=== PATIENT | male | born 1950 | race Caucasian/White ===

== ENCOUNTER → 2016-12-08 | Outpatient (CLI) | payer MEDICARE | LOC: RAD 12:18 | PROVIDERS: ATTEND Otolaryngology | DX: Z01.812 Encounter for preprocedural laboratory examination (principal); J38.7 Other diseases of larynx | CPT/HCPCS: 70491; 71020; 82565 ==

== ENCOUNTER 2017-04-26 12:28 | Emergency (ER) | payer MEDICARE ==
--- NOTE | 2017-04-26 13:40 | ER Document Report ---
ED Medical Screen (RME) - General Chief Complaint: Shortness Of Breath Stated Complaint: DIFFICULITY BREATHING Time Seen by Provider: 04/26/17 13:32 Notes: Patient is a 66-year-old male, past medical history throat cancer, AAA ( scheduled for repair in 4 days), presents with sudden onset of shortness of breath yesterday. He says his shortness of breath is worse when he lays down and improves when he sits up. He saw his primary care physician and was sent to the emergency room due to concern for COPD versus PE. Patient denies chest pain, leg swelling, cough, fevers, hemoptysis, nausea, vomiting or abdominal pain. PE: NAD. Lungs CTAB. RRR. I have greeted and performed a rapid initial assessment of this patient. A comprehensive ED assessment and evaluation of the patient, analysis of test results and completion of the medical decision making process will be conducted by additional ED providers. TRAVEL OUTSIDE OF THE [place] IN LAST 30 DAYS: No - Related Data Allergies/Adverse Reactions: SHRIMP Allergy (Uncoded 04/26/17 12:32) Past Medical History Renal/ Medical History: Denies: Hx Peritoneal Dialysis Physical Exam - Vital signs Vitals: Temp Pulse Resp BP Pulse Ox 98.2 F 87 20 142/98 H 94 04/26/17 12:32 04/26/17 12:32 04/26/17 12:32 04/26/17 12:32 04/26/17 12:32 Course - Vital Signs Vital signs: Temp Pulse Resp BP Pulse Ox 98.2 F 87 20 142/98 H 94 04/26/17 12:32 04/26/17 12:32 04/26/17 12:32 04/26/17 12:32 04/26/17 12:32
--- NOTE | 2017-04-26 14:10 | RADIOLOGY REPORT (SQ) ---
EXAM DESCRIPTION: CHEST PA/LAT COMPLETED DATE/TIME: 04/26/2017 1:54 pm REASON FOR STUDY: SOB COMPARISON: 12/08/2016 EXAM PARAMETERS: NUMBER OF VIEWS: two views TECHNIQUE: Digital Frontal and Lateral radiographic views of the chest acquired. RADIATION DOSE: NA LIMITATIONS: none FINDINGS: LUNGS AND PLEURA: No opacities, masses or pneumothorax. No pleural effusion. MEDIASTINUM AND HILAR STRUCTURES: No masses or contour abnormalities. HEART AND VASCULAR STRUCTURES: Heart normal size. No evidence for failure. BONES: No acute findings. HARDWARE: None in the chest. OTHER: No other significant finding. IMPRESSION: NO SIGNIFICANT RADIOGRAPHIC FINDING IN THE CHEST. TECHNICAL DOCUMENTATION: JOB ID: [id number] [employer]- All Rights Reserved
[2017-04-26 14:30] LABS: ABSOLUTE EOSINOPHILS # (AUTO) 0.2 10^3/uL (0.0-0.6); ABSOLUTE LYMPHOCYTES (AUTO) 1.3 10^3/uL (0.5-4.7); ABSOLUTE MONOCYTES (AUTO) 0.8 10^3/uL (0.1-1.4); ABSOLUTE NEUT (AUTO) 4.9 10^3/uL (1.7-8.2); BASOPHILS % (AUTO) 0.5 % (0-2); EOSINOPHILS % (AUTO) 2.2 % (0-6); HEMATOCRIT 50.3 % (37.9-51.0); HEMOGLOBIN 16.5 g/dL (13.5-17.0); HGB HCT DIFFERENCE -0.8; LYMPHOCYTES % (AUTO) 18.3 % (13-45); MEAN CORPUSCULAR HEMOGLOBIN 31.4 pg (27.0-33.4); MEAN CORPUSCULAR HGB CONC 32.8 g/dL (32.0-36.0); MEAN CORPUSCULAR VOLUME 96 fl (80-97); MONOCYTES % (AUTO) 11.4 % (3-13); RED BLOOD COUNT 5.26 10^6/uL (4.35-5.55); RED CELL DISTRIBUTION WIDTH 13.9 % (11.5-14.0); SEGMENTED NEUTROPHILS % (AUTO) 67.6 % (42-78); WHITE BLOOD COUNT 7.3 10^3/uL (4.0-10.5)
[2017-04-26] MEDS ORDERED: ALBUTEROL SULFATE 0.083% NEB 2.5 MG/3 ML AMPUL NEB ONE (14:40)
--- NOTE | 2017-04-26 14:40 | ER Document Report ---
ED Respiratory Problem - General Mode of Arrival: Ambulatory Information source: Patient TRAVEL OUTSIDE OF THE [place] IN LAST 30 DAYS: No - HPI Patient complains to provider of: Cough, Short of breath Onset: Other - 5-6 days ago Duration: Continuous Context: Smoker - former Cough: Productive Associated symptoms: Other - see notes above <BUSTER OSPINA - Last Filed: 04/26/17 23:50> <JAVID SMITH - Last Filed: 04/27/17 00:06> - General Chief Complaint: Shortness Of Breath Stated Complaint: DIFFICULITY BREATHING Time Seen by Provider: 04/26/17 13:32 Notes: 66 year old male with history of throat cancer and abdominal aortic aneurysm presents to the ED complaining of difficulty breathing which is worsened when laying flat that started 5-6 days ago and describes it as 'COPD breathing'. Patient is additionally complaining of wheezing and bilateral parietal and occiput headache, but denies chest pain, fever, nausea, vomiting, diarrhea, numbness, tingling, or vision changes. Patient has an abdominal aortic aneurysm and has surgery scheduled in 4 days for repair. Patient is concerned that he has developed respiratory problems a few days prior to his scheduled surgery. Patient reports chronic hoarseness and a productive cough, which is not new, and explains that he was seen in May 2016 for persistent sore throat and hoarseness, which led to the discovery of his throat cancer. Vascular Surgeon: Jass Mitchell (last saw 2 weeks ago) PCP: None (BUSTER OSPINA) - Related Data Allergies/Adverse Reactions: SHRIMP Allergy (Uncoded 04/26/17 12:32) Past Medical History - General Information source: Patient - Social History Smoking Status: Former Smoker Chew tobacco use (# tins/day): No Frequency of alcohol use: None Drug Abuse: None Family History: Reviewed & Not Pertinent Patient has suicidal ideation: No Patient has homicidal ideation: No - Past Medical History Cardiac Medical History: Reports: Other - Abdominal Aortic Aneurysm Denies: Hx Heart Attack, Hx Hypercholesterolemia, Hx Hypertension Neurological Medical History: Denies: Hx Cerebrovascular Accident Endocrine Medical History: Denies: Hx Diabetes Mellitus Type 2 Renal/ Medical History: Denies: Hx Peritoneal Dialysis Malignancy Medical History: Reports Other - throat cancer <BUSTER OSPINA - Last Filed: 04/26/17 23:50> Review of Systems - Review of Systems Constitutional: No symptoms reported. denies: Fever EENT: See HPI, Other - voice hoarseness. denies: Blurred vision Cardiovascular: No symptoms reported. denies: Chest pain Respiratory: See HPI, Cough, Short of breath, Sputum, Wheezing Gastrointestinal: No symptoms reported. denies: Diarrhea, Nausea, Vomiting Genitourinary: No symptoms reported Male Genitourinary: No symptoms reported Musculoskeletal: No symptoms reported Skin: No symptoms reported Hematologic/Lymphatic: No symptoms reported Neurological/Psychological: See HPI, Headaches - bilateral parietal and occiput. denies: Numbness, Tingling -: Yes All other systems reviewed and negative <BUSTER OSPINA - Last Filed: 04/26/17 23:50> Physical Exam <BUSTER OSPINA - Last Filed: 04/26/17 23:50> <JAVID SMITH - Last Filed: 04/27/17 00:06> - Vital signs Vitals: Temp Pulse Resp BP Pulse Ox 98.2 F 87 20 142/98 H 94 04/26/17 12:32 04/26/17 12:32 04/26/17 12:32 04/26/17 12:32 04/26/17 12:32 - Notes Notes: GENERAL: Alert, interacts well. No acute distress. Voice hoarseness, but no stridor. HEAD: Normocephalic, atraumatic. EYES: Pupils equal, round, and reactive to light. Extraocular movements intact. ENT: Oral mucosa moist, tongue midline. NECK: Full range of motion. Supple. Trachea midline. LUNGS: Trace expiratory wheezing. No rales or rhonchi. No respiratory distress. HEART: Regular rate and rhythm. No murmurs, gallops, or rubs. ABDOMEN: Soft, non-tender. Non-distended. Bowel sounds present in all 4 quadrants. Abdominal muscles being used to help speak. EXTREMITIES: Moves all 4 extremities spontaneously. No edema, radial and dorsalis pedis pulses 2/4 bilaterally. No cyanosis. NEUROLOGICAL: Alert and oriented x3. Normal speech. Biceps and patellar DTRs 2+ bilaterally. PSYCH: Normal affect, normal mood. SKIN: Warm, dry, normal turgor. Skin thickening and hyper-pigmentation just above the right nipple that is 4 cm x 13 cm. (BUSTER OSPINA) Course - Laboratory Result Diagrams: 04/26/17 14:06 04/26/17 14:06 - Consults Dr. Umaña Time consulted: 15:56 <BUSTER OSPINA - Last Filed: 04/26/17 23:50> - Laboratory Result Diagrams: 04/26/17 14:06 04/26/17 14:06 <JAVID SMITH - Last Filed: 04/27/17 00:06> - Re-evaluation Re-evalutation: 04/26/17 16:08 CBC unremarkable, CMP has minimally elevated glucose at 152, otherwise negative , cardiac enzymes negative, BNP normal, CT angiogram of the chest is negative, soft tissue CAT scan of the neck to look for increasing size of the throat mass shows thickening of the true vocal cord but no signs of airway obstruction. After single breathing treatment of albuterol here the patient is feeling much better, states that he is now able to lie flat without difficulty. Patient will be treated with prednisone and albuterol for presumed exacerbation of COPD. This is a new diagnosis for this patient, but he is a prior smoker. I did discuss this plan of treatment with his surgeon or Dr. Umaña to ensure that a short course of prednisone would not cause any problems with his aortic stenting on Wednesday. He agrees with the course of treatment. (JAVID SMITH) - Vital Signs Vital signs: Temp Pulse Resp BP Pulse Ox 98.2 F 87 19 125/77 94 04/26/17 12:32 04/26/17 12:32 04/26/17 16:20 04/26/17 16:20 04/26/17 16:20 - Laboratory Laboratory results interpreted by me: 04/26/17 14:06 Glucose 152 H - EKG Interpretation by Me Additional EKG results interpreted by me: 04/26/17 16:09 EKG shows sinus rhythm at a rate of 71, left axis deviation, right bundle branch block, no ST segment elevations or depressions, there are T-wave inversions noted in the V2, V1 and aVR per my interpretation. (JAVID SMITH) - Consults Dr. Umaña Reason for consultation: 04/26/17 15:56 Patient was discussed with Dr. Umaña, the patient's vascular surgeon, who agrees with plan to start the patient on steroids as it will not interfere with the aortic stent placement in 4 days. (BUSTER OSPINA) Discharge <BUSTER OSPINA - Last Filed: 04/26/17 23:50> <JAVID SMITH - Last Filed: 04/27/17 00:06> - Discharge Clinical Impression: Essential hypertension, Throat cancer, Acute exacerbation of chronic obstructive pulmonary disease Condition: Stable Disposition: HOME, SELF-CARE Additional Instructions: Use your inhaler 2 puffs every 4 hours as needed for cough or shortness of breath. Please take the prednisone 3 pills daily for the next 4 days, we give you your first dose here today. I did speak with Dr. Umaña who agrees with this treatment course, he does not feel prednisone will interfere with your surgery on Wednesday. Prescriptions: Prednisone [Deltasone 20 mg Tablet] 3 tab PO DAILY 4 Days Scribe Attestation: 04/27/17 00:06 I personally performed the services described in the documentation, reviewed and edited the documentation which was dictated to the scribe in my presence, and it accurately records my words and actions. (JAVID SMITH) Scribe Documentation - Scribe Written by Liz:: Liz Prado, 04/26/2017 1534 acting as scribe for :: Leoncio <BUSTER OSPINA - Last Filed: 04/26/17 23:50>
[2017-04-26 14:50] LABS: ALANINE AMINOTRANSFERASE 27 U/L (21-72); ALBUMIN 4.5 g/dL (3.5-5.0); ALKALINE PHOSPHATASE 99 U/L (38-126); ANION GAP 13 (5-19); ASPARTATE AMINO TRANSFERASE 20 U/L (17-59); BILIRUBIN,DIRECT 0.4 mg/dL (0.0-0.4); BILIRUBIN,TOTAL 0.8 mg/dL (0.2-1.3); BLOOD UREA NITROGEN 20 mg/dL (7-20); CALCIUM 9.5 mg/dL (8.4-10.2); CARBON DIOXIDE 27 mmol/L (22-30); CHLORIDE 100 mmol/L (98-107); CREATINE KINASE 75 U/L (55-170); CREATININE RESULT 0.85 mg/dL (0.52-1.25); GLUCOSE 152 mg/dL (75-110); POTASSIUM 4.8 mmol/L (3.6-5.0); SODIUM 139.5 mmol/L (137-145); TOTAL PROTEIN 7.7 g/dL (6.3-8.2)
[2017-04-26 15:06] LABS: TROPONIN I < 0.012 ng/mL
--- NOTE | 2017-04-26 15:21 | RADIOLOGY REPORT (SQ) ---
EXAM DESCRIPTION: CTA CHEST COMPLETED DATE/TIME: 04/26/2017 3:11 pm REASON FOR STUDY: sob, cancer, r/o PE COMPARISON: None. TECHNIQUE: CT scan of the chest performed using helical scanning technique with dynamic intravenous contrast injection. Images reviewed with lung, soft tissue and bone windows. Reconstructed coronal and sagittal MPR images reviewed. Additional 3 dimensional post-processing performed to develop Maximal Intensity Projection images (FL P). All images stored on PACS. All CT scanners at this facility use dose modulation, iterative reconstruction, and/or weight based d osing when appropriate to reduce radiation dose to as low as reasonably achievable (ALARA). [facility]: Dose Right [facility]: CareDose [facility]: Dose Right [facility]: Teradose 4D [facility]: [employer] CONTRAST TYPE AND DOSE: Not recorded by the technologist. RENAL FUNCTION: BUN 20 creatinine 0.9 RADIATION DOSE: . LIMITATIONS: None. FINDINGS: LUNGS AND PLEURA: Centrilobular emphysema. No masses, infiltrates, pneumothorax. No pleu ral effusions, calcifications. AORTA AND GREAT VESSELS: No aneurysm or dissection. HEART: No pericardial effusion. PULMONARY ARTERIES: No emboli visualized in the main pulmonary arteries or the segmental branches. HILAR AND MEDIASTINAL STRUCTURES: No identified masses or abnormal nodes. HARDWARE: None in the chest. UPPER ABDOMEN: No significant findings. Limited exam. THYROID AND OTHER SOFT TISSUES: See separate neck CT report of the same date. BONES: No acute or significant finding. 3D MIPS: Confirm above findings. OTHER: No other significant finding. IMPRESSION: No evidence of pulmonary embolus. TECHNICAL DOCUMENTATION: JOB ID: [id number] Quality ID # [id number]: Final reports with documentation of one or more dose reduction techniques (e.g., Au tomated exposure control, adjustment of the mA and/or kV according to patient size, use of iterative reconstruction technique) 2010 [employer]- All Rights Reserved
--- NOTE | 2017-04-26 15:36 | RADIOLOGY REPORT (SQ) ---
EXAM DESCRIPTION: CT SOFT TISSUE NECK WITH COMPLETED DATE/TIME: 04/26/2017 3:11 pm REASON FOR STUDY: known throat cancer, increasing difficulty breathi COMPARISON: 12/08/2016 TECHNIQUE: Post IV contrasted scanning from skull base through lung apices with review of bone, soft tissue and lung windows. Reconstructed coronal and sagittal MPR images reviewed. All images stored on PACS. All CT scanners at this facility use dose modulation, iterative reconstruction, and/or weight based d osing when appropriate to reduce radiation dose to as low as reasonably achievable (ALARA). [facility]: Dose Right [facility]: CareDose [facility]: Dose Right [facility]: Teradose 4D [facility]: [employer] CONTRAST TYPE AND DOSE: contrast/concentration: Isovue 370.00 mg/ml; Total Contrast Delivered: 75.0 ml; Total Saline Delivered: 86.0 ml RENAL FUNCTION: BUN 20 creatinine 0.9 RADIATION DOSE: Up-to-date CT equipment and radiation dose reduction techniques were employed. CTDIv ol: 3.3 - 29.8 mGy. DLP: 1784 mGy-cm. . LIMITATIONS: None. FINDINGS: SKULL BASE: Intact. MAJOR SALIVARY GLANDS: No solid or cystic masses. No inflammatory changes. LYMPHADENOPATHY: No adenopathy. MUCOSAL MASSES OR ASYMMETRY: Asymmetry in the left true vocal cord with associated sclerosis in the a rytenoid cartilage. LARYNX/CORDS: No abnormal findings. VASCULAR STRUCTURES: The major vessels are patent. LUNG APICES: See separate report of the same date. BONES: Intact. THYROID: Normal size. No masses. PARANASAL SINUSES: Clear. OTHER: Unchanged polyp anterior left nasal cavity. IMPRESSION: Asymmetry in the left focal cord with associated sclerosis in the adjacent arytenoid car tilage. No significant change. TECHNICAL DOCUMENTATION: JOB ID: [id number] Quality ID # [id number]: Final reports with documentation of one or more dose reduction techniques (e.g., Au tomated exposure control, adjustment of the mA and/or kV according to patient size, use of iterative reconstruction technique) 2010 [employer]- All Rights Reserved
[2017-04-26] MEDS ORDERED: ALBUTEROL SULFATE HFA (90 MCG/PUFF) 8 GM MDI (1 MDI/ER DISP) IH PRN (16:10)
[2017-04-26] MEDS ORDERED: PREDNISONE 20 MG TABLET PO ONE (16:10)
[2017-04-26 16:26] VITALS: BP 125/77
--- NOTE | 2017-04-26 18:13 | EKG REPORT ---
SEVERITY:- ABNORMAL ECG - SINUS RHYTHM RBBB AND LAFB : Confirmed by: Elia Rizo MD 26-Apr-2017 18:13:28
== END 2017-04-26 16:26 | disposition home or self-care (01) ==
LOC: ER 12:28
DX: C14.0 Malignant neoplasm of pharynx, unspecified (principal); J44.1 Chronic obstructive pulmonary disease with (acute) exacerbation; I10 Essential (primary) hypertension; R51 Headache; I45.10 Unspecified right bundle-branch block; I71.4 Abdominal aortic aneurysm, without rupture; Z87.891 Personal history of nicotine dependence; Z91.013 Allergy to seafood
CPT/HCPCS: 93005; 94640; 99284; 36415; 82550; 85025; 80053; 84484; 83880; 71020; 70491; 71275; 93010; A9270 ×2; J3490; J7512

== ENCOUNTER 2017-06-16 10:02 | Day surgery (SDC) | payer MEDICARE ==
[~2017-06-16 10:02] MED LIST: CEFAZOLIN 1 GM/D5W RTU 1 GM/50 ML RTUPB IV PRN; LACTATED RINGERS 1000 ML IV PRN; LIDOCAINE 0.5% INJ-PF (5 MG/ML) 50 ML SDV SUBCUT PRN; LIDOCAINE 2%/EPINEPHRINE INJ 20 ML VIAL ONE
[2017-06-16] MEDS ORDERED: ALBUTEROL SULFATE 0.083% NEB 2.5 MG/3 ML AMPUL NEB ONE (10:21)
[2017-06-16] MEDS ORDERED: FENTANYL CITRATE INJ/PF 100 MCG/2 ML AMPUL ONE ×2 (10:51→13:17)
[2017-06-16] MEDS ORDERED: LIDOCAINE 2% INJ-PF (20 MG/ML) 10 ML AMPUL ONE (10:51)
[2017-06-16] MEDS ORDERED: MIDAZOLAM 2 MG/2 ML INJ ONE (10:51)
[2017-06-16] MEDS ORDERED: PROPOFOL INJ 200 MG/20 ML VIAL IV ONE (10:51)
[2017-06-16] MEDS ORDERED: FENTANYL CITRATE INJ/PF 100 MCG/2 ML AMPUL IV PRN ×3 (12:16)
[2017-06-16] MEDS ORDERED: ONDANSETRON HCL INJ/PF 4 MG/2 ML SDV IV PRN ×2 (12:16→13:06)
[2017-06-16] MEDS ORDERED: DIPHENHYDRAMINE HCL 50 MG/ML VIAL IV PRN (12:16)
--- NOTE | 2017-06-16 13:04 | Operative Report ---
Operative Report DATE OF SURGERY: 06/16/17 PREOPERATIVE DIAGNOSIS: Laryngeal carcinoma POSTOPERATIVE DIAGNOSIS: same OPERATION: 1. Focused ultrasound of right neck, and ultrasound directed insertion of single-lumen Vxznge-c-Bvlg catheter placement of the right subclavian position. 2. Use of intraoperative fluoroscopy. 3. Esophagogastroduodenoscopy with percutaneous endoscopic gastrostomy tube placement SURGEON: TONI NAVARRO 1ST REHABILITATION ENGINEER: GREG GLOVER ANESTHESIA: LMAC TISSUE REMOVED OR ALTERED: None COMPLICATIONS: None ESTIMATED BLOOD LOSS: Scant INTRAOPERATIVE FINDINGS: See below PROCEDURE: Patient was taken to the preop holding area where the right neck was previously marked. He underwent LMAC anesthesia with his arms tucked, right neck and right chest wall exposed, prepped draped sterile fashion in the main operating room all prepared with Betadine. Surgical plan and surgical timeout conducted The first portion of the operation was the planned right sided Clbvfd-o-[id number] catheter. Right neck was scanned with a variable frequency linear transducer, right internal jugular vein felt to be suitable for cannulation. Suitable site for catheter insertion was chosen at the base of the right neck area skin was any stopped 1% lidocaine plain. Using Seldinger technique a micro needle and wire was threaded into the right internal jugular vein. Suitable site which is in the right subclavian position for port placement. Skin was any size 1% lidocaine plain. A 3 cm incision was made in the subcutaneous tissues parallel to the clavicle pocket was developed large enough to accommodate a single-chamber port. Catheter is turned to the appropriate length tunneled between the 2 wounds and attached the port with the plastic ring and the port tucked into the right subclavian pocket Under fluoroscopic guidance the micro wire was switched over to a conventional 0.030 inch wire under fluoroscopy. We then threaded the dilator and introducer sheath over the wire, wire and dilator removed, and the single-lumen catheter threaded into the right internal jugular vein all under fluoroscopic guidance. The tip of the catheter was left in the SVC right atrial junction. There is no kinking of the catheter. There was excellent aspiration and flush through the chamber. Wounds were closed with 3-0 Vicryl benzoin and Steri-Strips. This completed the first portion of the operation Patient was now placed in a steep reverse Trendelenburg position oral mouthpiece inserted and team arrived from [facility] for EGD, PEG tube placement. Flexible adult upper endoscope was advanced to the oropharynx down the esophagus to the stomach into the duodenum. There is no evidence of gross pathology on the hypopharynx. Scope was brought back into the stomach, and insufflation performed. Counter palpation was provided and a suitable site for placement of the PEG tube was chosen in the left of midline sub-xiphoid region. Skin was any size 1 % plain lidocaine, incision made with 11 blade, and Jelco needle and wire threaded into the lumen of the stomach. The wire was retrieved using the snare with the adult endoscope and the endoscope wire all brought out through the patient's mouth. We disengaged the snare and active a 20 Jamaican feeding tube which is threaded over the wire. The feeding tube wire were brought back through in a antegrade fashion bringing the bolster up against the anterior stomach wall. I repeated the endoscopy without difficulty and is confirmed the bolster and secured position, not too tight, with no evidence of bleeding or hematoma. Appropriate fixation devices were applied to the feeding tube. Patient tolerated the procedure well taken recovery in stable condition. Portable upright chest x-ray pending time dictation. The physician medical office receptionist assistant, Ms. Nieves, provided assistance during this case by: Assisting and port insertion, retracting tissue, instillation of local anesthesia and closure of skin incisions.
[2017-06-16] MEDS ORDERED: OXYCODONE-ACETAMINOPHEN 5-325 MG TABLET PO PRN (13:05)
--- NOTE | 2017-06-16 13:05 | PDOC DISCHARGE SUMMARY ---
Discharge Summary (SDC) - Discharge Final Diagnosis: laryngeal carcinoma Date of Surgery: 06/16/17 Discharge Date: 06/16/17 Condition: Stable Treatment or Instructions: Discharge instructions for Port-a-Cath: Leave paper bandaids (steri strips) intact until follow up appointment. You may shower in 48 hours. Do not scrub area. Warm water and soap may go over steri strips, pat dry. If you experiences unusual bleeding, fever, difficulty breathing, swelling of incision site or neck call clinic for evaluation. If it is after hours, you may call the hospital and request to speak with the surgicalist. [phone] Follow home health instructions for PEG tube. Follow up in office with Gretta Antonio PA-C at [facility] in 10- 14 days. [phone] Prescriptions: Ketorolac Tromethamine [Toradol 10 mg Tablet] 10 mg PO Q6HP PRN #20 tablet PRN Reason: Discharge Diet: As Tolerated Discharge Activity: Activity As Tolerated Report the Following to Your Physician Immediately: Increase in Pain, Fever over 101 Degrees, Unusual Bleeding, Redness, Swelling, Drainage-Foul Smelling
[2017-06-16] MEDS ORDERED: ACETAMINOPHEN 100 ML IV ONE (13:23)
--- NOTE | 2017-06-16 14:44 | RADIOLOGY REPORT (SQ) ---
EXAM DESCRIPTION: CHEST SINGLE VIEW COMPLETED DATE/TIME: 06/16/2017 2:03 pm REASON FOR STUDY: port placement COMPARISON: CT chest 04/26/2017 Two-view chest 04/26/2017 EXAM PARAMETERS: NUMBER OF VIEWS: One view. TECHNIQUE: Single frontal radiographic view of the chest acquired. RADIATION DOSE: NA LIMITATIONS: None. FINDINGS: LUNGS AND PLEURA: Lungs are hyperlucent from obstructive disease. No acute infiltrates, p leural effusion, or pneumothorax. MEDIASTINUM AND HILAR STRUCTURES: No masses. Contour normal. HEART AND VASCULAR STRUCTURES: Heart normal in size. Normal vasculature. BONES: No acute findings. HARDWARE: Right jugular permanent central line tip superior vena cava. No pneumothorax. OTHER: No other significant finding. IMPRESSION: Right jugular permanent central line tip superior vena cava. No pneumothorax. TECHNICAL DOCUMENTATION: JOB ID: [id number]
--- NOTE | 2017-06-16 15:14 | RADIOLOGY REPORT (SQ) ---
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 TECHNIQUE: Intra-operative images acquired during surgical procedure to evaluate progress. NUMBER OF IMAGES: 3 digital images LIMITATIONS: None. FINDINGS: Intra procedural imaging and fluoro during placement of a right-sided permanent central li ne. IMPRESSION: Intra procedural imaging and fluoro COMMENT: Quality ID [id number]: Final reports for procedures using fluoroscopy that document radiation exp osure indices, or exposure time and number of fluorographic images (if radiation exposure indices are not available) Please consult full operative report of the attending physician for description of the procedure. TECHNICAL DOCUMENTATION: JOB ID: [id number] [employer]- All Rights Reserved
[2017-06-16 16:07] VITALS: BP 132/70
== END 2017-06-16 15:55 | disposition home or self-care (01) ==
LOC: OROUT 10:02
PROVIDERS: ATTEND Surgery
PROC: 05H533Z Insertion of Infusion Device into Right Subclavian Vein, Percutaneous Approach (ICD-10-PCS; principal; 2017-06-16 12:00)
PROC: 0DH63UZ Insertion of Feeding Device into Stomach, Percutaneous Approach (ICD-10-PCS; 2017-06-16 12:00)
DX: C32.0 Malignant neoplasm of glottis (principal); Z87.891 Personal history of nicotine dependence
CPT/HCPCS: 36561; 71010; 77001; 94640; 43246; C1752; C1788; J2250; J0690; J3010; J3490 ×2; J2704; A9270; J1642; J0131; 740

== ENCOUNTER → 2017-06-20 | Outpatient (CLI) | payer MEDICARE ==
--- NOTE | 2017-06-21 10:30 | RADIOLOGY REPORT (SQ) ---
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 TECHNIQUE: Blood glucose level was verified. Above dose of FDG was injected intravenously. 2-D seg mented attenuation correction images were obtained from the base of the skull to the midthighs. Nonc ontrast CT images were obtained for attenuation correction and fusion with emission images. CT image s were performed without oral or intravenous contrast and are not sensitive for parenchymal lesions. A series of overlapping emission PET images were obtained. Images reviewed and manipulated at [facility] work station by the radiologist. Images stored on PACS. LIMITATIONS: None. FINDINGS: HEAD AND NECK: Increased uptake 11.8 SUV within mass in the left vocal cord. Previously 9 .9 SUV. Morphologically, lesion looks slightly larger now crossing the midline. CHEST: No areas of abnormal metabolic activity in the chest. ABDOMEN AND PELVIS: No areas of abnormal metabolic activity in the abdomen or pelvis. Expected physi ologic activity is present in the genitourinary system and bowel. PROXIMAL LOWER EXTREMITIES: No areas of abnormal metabolic activity in the soft tissues of the lower extremities. BONES: No abnormal metabolic activity in the visualized skeleton. ADDITIONAL CT FINDINGS: Abdominal aortic aneurysm status post endograft. OTHER: No other significant findings. IMPRESSION: Hypermetabolic lesion left vocal cord. See above. No evidence of metastatic disease. TECHNICAL DOCUMENTATION: JOB ID: [id number]- All Rights Reserved
== END ==
LOC: RAD 20:26
PROVIDERS: ATTEND Radiology Radiation Oncology
DX: C32.0 Malignant neoplasm of glottis (principal); C32.2 Malignant neoplasm of subglottis
CPT/HCPCS: 78815; A9552

== ENCOUNTER 2017-08-10 10:11 | Outpatient (CLI) | payer MEDICARE ==
[2017-08-10] MEDS ORDERED: NORMAL SALINE 1000 ML 1,000 ML IV PRN (10:16)
[2017-08-10 11:44] VITALS: BP 111/64
== END 2017-08-10 13:00 | disposition home or self-care (01) ==
LOC: II 10:11 → 5TH 10:25 → II 13:00
PROVIDERS: ATTEND Internal Medicine
PROC: 3E0437Z Introduction of Electrolytic and Water Balance Substance into Central Vein, Percutaneous Approach (ICD-10-PCS; principal; 2017-08-10)
DX: E86.0 Dehydration (principal); C32.1 Malignant neoplasm of supraglottis
CPT/HCPCS: 96360; 96361; 96375

== ENCOUNTER 2017-08-17 10:24 | Outpatient (CLI) | payer MEDICARE ==
[~2017-08-17 10:24] MED LIST changes: -CEFAZOLIN 1 GM/D5W RTU 1 GM/50 ML RTUPB IV PRN; -LACTATED RINGERS 1000 ML IV PRN; -LIDOCAINE 0.5% INJ-PF (5 MG/ML) 50 ML SDV SUBCUT PRN; -LIDOCAINE 2%/EPINEPHRINE INJ 20 ML VIAL ONE; +NORMAL SALINE 1000 ML 1,000 ML IV PRN; +PROMETHAZINE HCL INJ 25 MG/1 ML VIAL IV PRN
[2017-08-17 10:53] VITALS: BP 132/87
== END 2017-08-17 13:10 | disposition home or self-care (01) ==
LOC: II 10:24 → 5TH 10:30 → II 13:10
PROVIDERS: ATTEND Internal Medicine
PROC: 3E043GC Introduction of Other Therapeutic Substance into Central Vein, Percutaneous Approach (ICD-10-PCS; principal; 2017-08-17)
DX: E86.0 Dehydration (principal); C32.1 Malignant neoplasm of supraglottis
CPT/HCPCS: 96365; 96375; 96523; J2550; 96361; 96374

== ENCOUNTER → 2017-11-21 | Outpatient (CLI) | payer MEDICARE, OTHER ==
--- NOTE | 2017-11-22 08:54 | RADIOLOGY REPORT (SQ) ---
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 TECHNIQUE: Blood glucose level was verified. Above dose of FDG was injected intravenously. 2-D seg mented attenuation correction images were obtained from the base of the skull to the midthighs. Nonc ontrast CT images were obtained for attenuation correction and fusion with emission images. CT image s were performed without oral or intravenous contrast and are not sensitive for parenchymal lesions. A series of overlapping emission PET images were obtained. Images reviewed and manipulated at [facility] work station by the radiologist. Images stored on PACS. LIMITATIONS: None. FINDINGS: HEAD AND NECK: Increased uptake in the left vocal cord lesion now 5.7 SUV, previously 11.8 SUV. Morphologically lesion is not significantly changed. No new lesions are identified. CHEST: No areas of abnormal metabolic activity in the chest. ABDOMEN AND PELVIS: No areas of abnormal metabolic activity in the abdomen or pelvis. Expected physi ologic activity is present in the genitourinary system and bowel. PROXIMAL LOWER EXTREMITIES: No areas of abnormal metabolic activity in the soft tissues of the lower extremities. BONES: No abnormal metabolic activity in the visualized skeleton. ADDITIONAL CT FINDINGS: Stable aortic aneurysm status post endograft. OTHER: No other significant findings. IMPRESSION: Decrease in hypermetabolic activity within the left focal cord lesion. No evidence of m etastatic disease. TECHNICAL DOCUMENTATION: JOB ID: [id number]- All Rights Reserved
== END ==
LOC: RAD 14:50
PROVIDERS: ATTEND Internal Medicine
DX: C32.1 Malignant neoplasm of supraglottis (principal)
CPT/HCPCS: 78815; A9552

== ENCOUNTER → 2018-01-02 | Outpatient (CLI) | payer MEDICARE, OTHER ==
--- NOTE | 2018-01-03 12:46 | RADIOLOGY REPORT (SQ) ---
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 RADIONUCLIDE AND DOSE: 10.0 mCi F18 FDG The route of agent administration: Intravenous FASTING BLOOD SUGAR: 86 mg/dl CONTRAST TYPE AND DOSE: No CT contrast given. TECHNIQUE: Blood glucose level was verified. Above dose of FDG was injected intravenously. 2-D seg mented attenuation correction images were obtained from the base of the skull to the midthighs. Nonc ontrast CT images were obtained for attenuation correction and fusion with emission images. CT image s were performed without oral or intravenous contrast and are not sensitive for parenchymal lesions. A series of overlapping emission PET images were obtained. Images reviewed and manipulated at [facility] [employer] [facility] by the radiologist. Images stored on PACS. LIMITATIONS: None. FINDINGS: HEAD AND NECK: Again seen is soft tissue mass involving the left vocal cord. The majority of the mass is now not hypermetabolic. Currently mean SUV value 2.15. There is residual activity a long the left side with mean SUV value 5.59. Prior value 5.7. CHEST: No areas of abnormal metabolic activity in the chest. ABDOMEN AND PELVIS: No areas of abnormal metabolic activity in the abdomen or pelvis. Expected physi ologic activity is present in the genitourinary system and bowel. PROXIMAL LOWER EXTREMITIES: No areas of abnormal metabolic activity in the soft tissues of the lower extremities. BONES: No abnormal metabolic activity in the visualized skeleton. ADDITIONAL CT FINDINGS: Hepatic cysts and renal cysts. Abdominal aortic aneurysm with endograft. Co lonic diverticulosis. Gastrostomy tube. OTHER: No other significant findings. IMPRESSION: MAJORITY OF THE SOFT TISSUE MASS INVOLVING THE LEFT VOCAL CORD IS CURRENTLY NOT HYPERMET ABOLIC. ACTIVITY ALONG THE PERIPHERAL EDGE IS UNCHANGED. NO PROGRESSION. NO OTHER SIGNIFICANT FIND INGS ON PET IMAGING. STABLE INCIDENTAL CT FINDINGS ABOVE. TECHNICAL DOCUMENTATION: JOB ID: [id number] [employer]- All Rights Reserved Reading location - IP/workstation name: [facility]
== END ==
LOC: RAD 19:51
PROVIDERS: ATTEND Radiology Radiation Oncology
DX: C32.0 Malignant neoplasm of glottis (principal); C32.2 Malignant neoplasm of subglottis
CPT/HCPCS: 78815; A9552

== ENCOUNTER → 2018-04-18 | Outpatient (CLI) | payer MEDICARE, OTHER ==
--- NOTE | 2018-04-18 16:52 | RADIOLOGY REPORT (SQ) ---
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 CT soft tissue neck dated 04/26/2017. TECHNIQUE: Post IV contrasted scanning from skull base through lung apices with review of bone, soft tissue and lung windows. Reconstructed coronal and sagittal MPR images reviewed. All images stored on PACS. All CT scanners at this facility use dose modulation, iterative reconstruction, and/or weight based d osing when appropriate to reduce radiation dose to as low as reasonably achievable (ALARA). [facility]: Dose Right [facility]: CareDose [facility]: Dose Right [facility]: Teradose 4D [facility]: Innovega CONTRAST TYPE AND DOSE: contrast/concentration: Isovue 370.00 mg/ml; Total Contrast Delivered: 75.0 ml; Total Saline Delivered: 40.5 ml RENAL FUNCTION: Creatinine 0.9. RADIATION DOSE: . LIMITATIONS: None. FINDINGS: SKULL BASE: Intact. MAJOR SALIVARY GLANDS: No solid or cystic masses. No inflammatory changes. LYMPHADENOPATHY: No adenopathy. MUCOSAL MASSES OR ASYMMETRY: No mucosal masses or asymmetry. LARYNX/CORDS: Stable mass involving the posterior left vocal cord and extending across the midline. Maximum transverse measurement on image 66 is 1.4 by 2.7 cm. VASCULAR STRUCTURES: The major vessels are patent. LUNG APICES: Clear. Emphysematous changes. BONES: Intact. Degenerative changes in the spine. THYROID: Normal size. No masses. PARANASAL SINUSES: Clear. OTHER: Soft tissue mass in the nasal cavity, stable and unchanged. IMPRESSION: 1. SOFT TISSUE MASS INVOLVING THE POSTERIOR LEFT VOCAL CORD. THIS IS STABLE AND UNCHANGED COMPARED T O SEVERAL PREVIOUS PET-CT SCANS. MOST RECENT PET SCAN DEMONSTRATED NO SIGNIFICANT FDG UPTAKE. 2. STABLE SOFT TISSUE MASS IN THE NASAL CAVITY. 3. NO OTHER SIGNIFICANT FINDING IN THE SOFT TISSUES OF THE NECK. NO ADENOPATHY. TECHNICAL DOCUMENTATION: JOB ID: [id number] Quality ID # [id number]: Final reports with documentation of one or more dose reduction techniques (e.g., Au tomated exposure control, adjustment of the mA and/or kV according to patient size, use of iterative reconstruction technique) 2010 [employer]- All Rights Reserved Reading location - IP/workstation name: [email or web address]
== END ==
LOC: RAD 07:58
PROVIDERS: ATTEND Internal Medicine
DX: C32.1 Malignant neoplasm of supraglottis (principal)
CPT/HCPCS: 70491; 82565

== ENCOUNTER → 2018-09-14 | Outpatient (CLI) | payer MEDICARE, OTHER ==
--- NOTE | 2018-09-14 09:28 | RADIOLOGY REPORT (SQ) ---
EXAM DESCRIPTION: CT ABD/PELVIS WITH IV ONLY COMPLETED DATE/TIME: 09/14/2018 9:01 am REASON FOR STUDY: HEMATURIA (R31.9) R31.9 HEMATURIA, UNSPECIFIED COMPARISON: PET-CT 01/02/2018, 11/21/2017 TECHNIQUE: CT scan of the abdomen and pelvis performed using helical scanning technique with dynamic intravenous contrast injection. No oral contrast. Images reviewed with lung, soft tissue, and bone windows. Reconstructed coronal and sagittal MPR images reviewed. Delayed images for evaluation of the urinary system also acquired. All images stored on PACS. All CT scanners at this facility use dose modulation, iterative reconstruction, and/or weight based d osing when appropriate to reduce radiation dose to as low as reasonably achievable (ALARA). [facility]: Dose Right [facility]: CareDose [facility]: Dose Right [facility]: Teradose 4D [facility]: Synappio CONTRAST TYPE AND DOSE: contrast/concentration: Isovue 350.00 mg/ml; Total Contrast Delivered: 85.0 ml; Total Saline Delivered: 69.0 ml RENAL FUNCTION: Creatinine 1.0 RADIATION DOSE: CT Rad equipment meets quality standard of care and radiation dose reduction techniq ues were employed. CTDIvol: 6.6 - 7.7 mGy. DLP: 736 mGy-cm.. LIMITATIONS: None. FINDINGS: In the anterior aspect of the bladder dome, a 1 cm mucosal nodule is present, worrisome fo r a primary bladder mucosal lesion. This is best shown on axial image 77 and sagittal image 36. LOWER CHEST: No significant findings. No nodules or infiltrates. LIVER: Normal size. No masses. No dilated ducts. Benign hepatic cysts are present less than 2 cm si ze SPLEEN: Normal size. No focal lesions. PANCREAS: No masses. No significant calcifications. No adjacent inflammation or peripancreatic fluid collections. Pancreatic duct not dilated. GALLBLADDER: No identified stones by CT criteria. No inflammatory changes to suggest cholecystitis. ADRENAL GLANDS: No significant masses or asymmetry. RIGHT KIDNEY AND URETER: No solid masses. 2 right upper pole 3 cm cyst. Right midpole 1 cm cyst. N o significant calcifications. No hydronephrosis or hydroureter. LEFT KIDNEY AND URETER: No solid masses. Left upper pole 2 cm cyst. Left midpole 5 cm cyst. No sig nificant calcifications. No hydronephrosis or hydroureter. AORTA AND VESSELS: Post treatment of the infrarenal abdominal aortic aneurysm with an aorto bi-iliac stent graft. Our diameter of the aneurysm is 5.5 cm which is stable compared to 01/02/2018 and 018. Celiac artery, SMA, bilateral renal arteries widely patent. RETROPERITONEUM: No retroperitoneal adenopathy, hemorrhage or masses. BOWEL AND PERITONEAL CAVITY: No masses or inflammatory changes. No free fluid or peritoneal masses. No CT evidence of bowel obstruction. Sigmoid and descending colon diverticuli are present without CT signs of acute diverticulitis APPENDIX: Normal. PELVIS: 1 cm nodule along the mucosal surface of the anterior bladder dome worrisome for small tumor. No pelvic adenopathy or free fluid. Normal size prostate. ABDOMINAL WALL: No masses. No hernias. BONES: No significant or acute findings. OTHER: No other significant finding. IMPRESSION: 1 cm mucosal nodule anterior bladder dome worrisome for primary tumor TECHNICAL DOCUMENTATION: JOB ID: [id number] Quality ID # [id number]: Final reports with documentation of one or more dose reduction techniques (e.g., Au tomated exposure control, adjustment of the mA and/or kV according to patient size, use of iterative reconstruction technique) 2010 [employer]- All Rights Reserved Reading location - IP/workstation name: [email or web address]
== END ==
LOC: RAD 08:20
PROVIDERS: ATTEND Physician Assistant
DX: R31.9 Hematuria, unspecified (principal)
CPT/HCPCS: 74177; 82565

== ENCOUNTER → 2019-01-10 | Outpatient (CLI) | payer MEDICARE, OTHER ==
--- NOTE | 2019-01-10 09:05 | RADIOLOGY REPORT (SQ) ---
EXAM DESCRIPTION: XENIA SWALLOW COMPLETED DATE/TIME: 01/10/2019 8:31 am REASON FOR STUDY: R13.10 DYSPHAGIA, UNSPECIFIED throat cancer COMPARISON: None. TECHNIQUE: Videofluoroscopic swallowing examination was performed in conjunction with speech patholo gy. Videofluoroscopic imaging was obtained and reviewed and these are the findings: RADIATION DOSE: 2 minutes 3 seconds of fluoroscopy was used 2 images saved to PACS. LIMITATIONS: None FINDINGS: The patient was brought into the fluoro room and placed upright on a modified barium swall ow chair. The patient was then given multiple consistencies mixed with barium to swallow under live fluoroscopic video guidance. According to the Speech Pathologist there was laryngeal penetration and aspiration of thin and nectar thick liquids. IMPRESSION: LARYNGEAL PENETRATION AND ASPIRATION OF THIN AND NECTAR THICK LIQUIDS. PLEASE SEE SPEECH PATHOLOGIST REPORT FOR OTHER FINDINGS AND RECOMMENDATIONS. COMMENT: Quality ID 145: Final reports for procedures using fluoroscopy that document radiation exp osure indices, or exposure time and number of fluorographic images (if radiation exposure indices are not available) TECHNICAL DOCUMENTATION: JOB ID: [id number] [employer]- All Rights Reserved Reading location - IP/workstation name: [email or web address]
--- NOTE | 2019-01-10 14:06 | ST Modified Barium Swallow ---
Recommendation - Recommendations Recommendations: Recommend use of honey thick liquids due to aspiration of thin and nectar liquids in the study. Recommend short course of dsphagia treatment to train patient in swallowing strategies and further educate on nature of condition. 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 Also reports reflux and diabetes ST Modified Barium Swallow - General Date: 01/10/19 Referring Physician: Dr. Grijalva Risks/Precautions: None Date of Onset: 01/23/17 - approximate onset date Reason for Referral: difficulty swallowing - History History obtained from: Patient -: Medical - per patient report: Patient states that he has had difficulty swallowing since surgical intervention for laryngeal cancer in January of 2017. States that the problem has remained about the same since that time. He states that he notices coughing with coffee in the morning, and some mild globus sensation. He reports that his "swallows aren't complete". The patient also r eports unilateral laryngeal weakness due to history of laryngeal cancer, is unsure of which side the weakness is on. Medications: per patient report: lantus Allergies: per patient report: shrimp - Functional Status Prior Functional Status: INDEPENDENT: feeding - independent Current Functional Limitations: feeding - coughing/globus - Subjective Patient/caregiver goal(s): safe swallow Cognitive-Linguistic Function: WNL Speech Intelligibility: WNL Current Nutritional Means: PO Current PO diet: Regular Current symptoms: Coughing, c/o Globus sensation Pain: Patient reports, 0/5 - Objective Assessment: Upright, Left Lateral - Food Trials Used Food trials used: Thin liquids, Honey-thickened liquids, Radium thick liquids, Pureed, Regular The patient: Was Able to Self Feed - Oral-Motor Skills Dentition: Full Velo-pharyngeal function: Unremarkable Laryngeal Function: weak voicing - unilateral laryngeal weakness reported, hoarse - Assessment Oral prep: Normal Labial closure: Adequate Leakage: None Mastication: Adequate Lingual Movement: Normal Oral stage: Normal for this Procedure - Pharyngeal Stage Initiation of Pharyngeal Stage Reflex: Normal Decreased laryngeal elevation: No Reduced Velopharyngeal Closure: no Reduced pressure generation: Yes reduced tongue-based retraction: No Pre-swallow pooling in valleculae: Significant Pre-Swallow pooling in pyriforms: None Reduced Thyro-Hyoid approximation: No Reduced epiglottic excursion: Yes Reduced pharyngeal peristalsis/contraction: Yes Post-swallow residulas vallecular: Moderate Post-Swallow residuals in pyriforms: Mild - Fall Risk Assessment Medications/Conditions that increase fall risks include: Antidepressants, sedatives, anti-arrhythmic, diuretic, benzodiazipenes, neuroleptics. BP regulation problems, cardiac problems, balance or gait deficits, neurological problems. Is patient considered at risk for falls: no Fall Risk Actions Taken: No action needed - Behavioral Observations During evaluation process patient: was pleasant, was cooperative, able to answer questions, provided medical history - Treatment / Educational Needs: Treatment/Education Needs: Treatment consisted of patient education on the role of the Speech Pathologist. Patient's plan of care and golas were communicated as well as scheduling and attendance policies. Recommendations for initial home program were shared. Patient demonstrated understanding and verbalized agreement. - Impression/Summary Laryngeal Penetration: Yes, after swallow Consistency: Thin, Radium Tracheal Aspiration: yes, after swallow Productive cough: No Effective Clearing: no Ineffective compensatory strategies: throat clear & reswallow Patient presents with: Pharyngeal stage dysph., Severe Risk of Aspiration: Severe Evaluation and Findings: Patient demonstrated reduced epiglottic inversion, whi ch prevented material from emptying from valleculae. Good airway protection during the swallow. However, after the swallow when air way reopened, residue from valleculae spilled into airway and was aspirated (thin and nectar liquids, significant amounts). With honey thick liquids and solid trials, this did not occur. There was still residue, but residue was able to clear with dry swallows. - Recommendations Solid diet recommendations: Regular Liquid Diet Modification: Honey-Thick Strict aspiration precautions: Yes Pt/Family education and followup with MD: Yes Dysphagia therapy with INNOVATION ANALYST: yes, dysphagia therapy Recommended techniques: Fully Upright During Meal, Dry Swallow After Bite, Small Bites and Sips Information, Precautions and Recommendations: Patient (Written), Patient (Verbal) Other recommendations: Recommend short course of dysphagia treatment to establish swallowing strategies and diet recommendations and to further educate patient on nature of condition. - Plan of Care Strategies to optimize patient understanding include:: ongoing assessment of educational needs, implementation of educational strategies, and re-education. - - -: Thank you for the opportunity to work with this patient and his/her family. Should you have any questions about this patient's plan or progress, I can be reached at [phone].
== END ==
LOC: RAD 09:22
PROVIDERS: ATTEND Otolaryngology
DX: R13.10 Dysphagia, unspecified (principal)
CPT/HCPCS: 74230

== ENCOUNTER → 2019-11-06 | Outpatient (CLI) | payer MEDICARE ==
--- NOTE | 2019-11-06 09:10 | RADIOLOGY REPORT (SQ) ---
EXAM DESCRIPTION: U/S RETROPERITON LTD COMPLETED DATE/TIME: 11/06/2019 8:56 am REASON FOR STUDY: AAA (I71.4) I71.4 ABDOMINAL AORTIC ANEURYSM, WITHOUT RUPTURE COMPARISON: CT dated 09/14/2018 TECHNIQUE: Static and dynamic grayscale images acquired of the aorta and stored on PACs. Selected co jorge Doppler and spectral images recorded. LIMITATIONS: None. FINDINGS: AORTIC CALIBER MAXIMAL PROXIMAL: 2.7 cm. MID: 2.5 cm. DISTAL: 4.9 cm. ILIAC DIAMETER Inadequately visualized. OTHER: No other significant finding. IMPRESSION: 4.9 cm aneurysmal dilatation of the distal abdominal aorta. The patient has an endovasc ular stent graft in place. Sac size is overall stable when compared to prior CT dated 09/14/2018. COMMENT: Aortic aneurysm imaging followup: The patient has had prior stent placement. Followup according to vascular surgeons recommendations. *Based upon the Society for Vascular Surgery Guidelines: J Vasc Surg. 2009 Oct;50(4 Suppl):S2-49 *For aortas of maximum diameter of 2.6-2.9 cm meeting the criteria for AAA (?1.5 x proximal normal se gment) TECHNICAL DOCUMENTATION: JOB ID: [id number] [employer]- All Rights Reserved Reading location - IP/workstation name: [email or web address]
== END ==
LOC: RAD 07:50
PROVIDERS: ATTEND Physician Assistant
DX: I71.4 Abdominal aortic aneurysm, without rupture (principal)
CPT/HCPCS: 76775